=== PATIENT | male | born 1945 | race Caucasian/White ===

== ENCOUNTER 2017-11-20 10:15 | Day surgery (SDC) | payer BC, MEDICARE ==
--- NOTE | 2017-11-20 06:52 | History and Physical - Ferro ---
CHIEF COMPLAINT/HISTORY OF CHIEF COMPLAINT: This patient presents with a history of intractable lumbar radiculopathy. On 12/29/08 a spinal cord stimulator with internal generator Medtronic was placed. Over the last number of months there have been a number of inconsistencies with respect to programming. Computer evaluation of the system identified the internal pulse generator battery depletion. He is for a pulse generator replacement while maintaining the current electrode position. PAST MEDICAL HISTORY: Sleep apnea. PAST SURGICAL HISTORY: Lumbar spinal surgery and knee replacement. MEDICATIONS ON ADMISSION: List to be provided. ALLERGIES: List to be provided. FAMILY/PSYCHOSOCIAL HISTORY: Social history - Social alcohol and caffeine. Family history - Blood disorder. SYSTEMS REVIEW: The patient is appropriate in no acute distress. The remainder of the systems review is positive for sleep disturbance and peripheral thrombophlebitis. PHYSICAL EXAMINATION: Height and weight are not known. HEENT: Within normal limits. LUNGS: Clear. HEART: Regular rate and rhythm. ABDOMEN: Nontender. MUSCULOSKELETAL: Examination of the musculoskeletal system shows a generator in the right posterior gluteal margin. Incisional sites approximating are identified. All of the incisions were intact. Sensory garcia are intact. Underlying pain pattern in the low back with a lower extremity extension somewhat more right than left. Sensory garcia and motor evaluation of the lower extremities are intact. NEUROLOGIC: Cranial nerves are intact. IMPRESSION: 1. LUMBAR RADICULOPATHY, ICD-10 CODE M54.16 AND M54.17. 2. SPINAL CORD STIMULATOR AND INTERNAL PULSE GENERATOR FAILURE. PLAN: The patient is here for replacement of the generator on an outpatient basis. The potential risks, side effects and complications have all been carefully reviewed. The procedure will be considered outpatient although an overnight stay will be evaluated. JOB NUMBER: [id number] [facility]
[~2017-11-20 10:15] MED LIST: ACETAMINOPHEN 1,000 MG/100 ML BTL IV ONE; CEFAZOLIN 2 Gram 2 GM/50 ML BAG IVPB ONE; FAMOTIDINE 20MG TABLET PO ONE; MECLIZINE 25 MG TABLET PO ONE; METOCLOPRAMIDE 10 MG TABLET PO ONE
[2017-11-20] MEDS ORDERED: CEFAZOLIN 1G VIAL IM ONE (10:16)
[2017-11-20] MEDS ORDERED: LIDOCAINE 2% MDV (20MG/ML) 20ML VIAL IV ONE (10:16)
[2017-11-20] MEDS ORDERED: MIDAZOLAM HCL 2MG/2ML VIAL IV ONE (10:16)
[2017-11-20] MEDS ORDERED: FENTANYL PF 100MCG/2ML VIAL IV ONE (10:16)
[2017-11-20] MEDS ORDERED: LIDOCAINE 1% W/EPI 1:200,000 MPF 30ML SQ ONE (10:16)
[2017-11-20] MEDS ORDERED: BUPIVACAINE 0.5% W/EPI MPF 30 ML VIAL IVP ONE (10:16)
[2017-11-20] MEDS ORDERED: PROPOFOL 10 MG/ML VIAL IV ONE (10:16)
--- NOTE | 2017-11-22 17:52 | Operative Note ---
DATE OF SURGERY: 11/20/17 PREOPERATIVE DIAGNOSES: 1. POST LUMBAR LAMINECTOMY SYNDROME, ICD-10 CODE = M96.1. 2. SPINAL CORD STIMULATOR INTERNAL GENERATOR, BATTERY DEPLETION. OPERATION: FLUOROSCOPICALLY-GUIDED INCISION, SUBCUTANEOUS DISSECTION, REMOVAL AND REPLACEMENT OF INTERNAL PULSE GENERATOR. SURGEON: DR. GALINA SO. ANESTHESIA: LOCAL SEDATION. ANESTHESIA PROVIDER: CLIFTON MCDANIEL CRNA. INDICATION: This patient with a history of intractable post lumbar laminectomy radiculopathy managed by a stimulator. Over the last number of months, stimulator battery depletion has been noted with ultimately complete failure of the system. Electronic analysis showed internal pulse generator battery depletion. He is here for replacement of the generator without lead changes. PROCEDURE: Intravenous line, vital sign monitoring, IV sedation by Anesthesia. Prepped and draped sterile technique. Patient position prone. Sterile prep, sterile technique at the left posterior gluteal margin. Using imaging for guidance, the generator identified in the left pouch, orientation noted. Skin infiltrated, incision made, and subcutaneous dissection was conducted to the generator. The generator pouch was opened and the generator exteriorized. It was from the indwelling leads and the new Medtronic Programmable Rechargeable generator placed onto the field. It was interfaced with the indwelling leads. Impedance checked. Antibiotic irrigation and Bovie for hemostasis. The generator was placed into the pouch secured to the posterior fascia with nonabsorbable suture and then the incision was closed using STRATAFIX suture, 2-0 fascia and 3-0 skin. Dermabond closure. He was transported to the Recovery Room stable. No side-effects from the procedure or the sedation. When fully awake, he was prepared for discharge. DISCHARGE INSTRUCTIONS: 1. Sites remain clean and dry although the Dermabond will allow showering, he should not sit in water or bathe in a tub. 2. Standard medications resumed including the antibiotic, Cipro, 500 mg twice a day for 14 days. 3. The office will contact the patient at home in the next 12-24 hours to set up an appointment for 7-10 days to evaluate the incisional sites. Until then, activities should stay controlled; limit bend, lift, push, pull. All other instructions were provided, with numbers to contact with problems given. He was then prepared discharged. cc: Dr. Villanueva JOB NUMBER: [id number] [facility]
== END 2017-11-20 13:35 | disposition home or self-care (01) ==
LOC: SUR 10:15
PROVIDERS: ATTEND Pain Medicine Interventional Pain Medicine
DX: M96.1 Postlaminectomy syndrome, not elsewhere classified (principal); E78.00 Pure hypercholesterolemia, unspecified; R60.9 Edema, unspecified; J44.9 Chronic obstructive pulmonary disease, unspecified; G47.33 Obstructive sleep apnea (adult) (pediatric); E66.9 Obesity, unspecified
CPT/HCPCS: 63685; 00300; 85002; J3010; J0690; C1787; C1820